=== PATIENT | male | born 1965 | race Hispanic/Latino ===

== ENCOUNTER 2021-04-11 12:11 | Emergency (ER) | payer SELFPAY ==
[~2021-04-11] VITALS: Ht 177.8 cm; Wt 97.1 kg
[2021-04-11 12:36] LABS: BASOPHILS % (AUTO) 0.4 % (0.0-5.0); EOSINOPHILS % (AUTO) 0.8 % (0.0-8.0); HEMATOCRIT 48.8 % (42-54); LYMPHOCYTES % (AUTO) 6.9 % (21.0-51.0); MEAN CORPUSCULAR HEMOGLOBIN 30.9 pg (27.0-33.0); MEAN CORPUSCULAR HGB CONC 34.8 g/dL (32.0-36.0); MEAN CORPUSCULAR VOLUME 88.7 fL (79-99); MONOCYTES % (AUTO) 7.7 % (3.0-13.0); NEUTROPHILS % (AUTO) 83.7 % (40.0-77.0); PLATELET COUNT (AUTO) 200 K/uL (130-400); RED CELL DISTRIBUTION WIDTH 12.5 % (11.0-15.5); WHITE BLOOD COUNT (AUTO) 15.9 K/uL (4.8-10.8)
[2021-04-11 12:45] LABS: CREATININE 0.9 mg/dL (0.5-1.5); POTASSIUM 4.2 mmol/L (3.5-5.1)
[2021-04-11 12:47] VITALS: BP 162/95
[2021-04-11 12:49] LABS: TOTAL PROTEIN, SERUM 8.2 g/dL (6.0-8.3)
[2021-04-11] MEDS ORDERED: 0.9%NACL 1000ML 1,000 ML IV SCH (13:30)
[2021-04-11] MEDS ORDERED: IOHEXOL-350 50ML VIAL IV ONE (13:35)
[2021-04-11] MEDS ORDERED: CLIN300C10 PO (15:05)
== END 2021-04-11 15:30 | disposition home or self-care (01) ==
LOC: EDH 12:11
DX: K11.5 Sialolithiasis (principal); I10 Essential (primary) hypertension; E11.9 Type 2 diabetes mellitus without complications
CPT/HCPCS: 36415; 70487; 80053; 83605; 85025; 96360; J7030; Q9967